=== PATIENT | male | born 1950 | race Caucasian/White ===

== ENCOUNTER 2020-08-10 06:27 | Day surgery (SDC) | payer MEDICARE ==
[2020-08-10] MEDS ORDERED: LACTATED RINGERS 1,000 ML IV ONE ×2 (06:33→08:15)
[2020-08-10] MEDS ORDERED: MIDAZOLAM 2 MG/2 ML VIAL ONE ×3 (07:39→08:01)
[2020-08-10] MEDS ORDERED: fentaNYL 250 MCG/5 ML VIAL ONE (07:39)
[2020-08-10 08:55] VITALS: BP 111/75
== END 2020-08-10 06:28 | disposition home or self-care (01) ==
LOC: SDS 06:27
PROVIDERS: ATTEND Surgery
DX: Z12.11 Encounter for screening for malignant neoplasm of colon (principal); K57.30 Diverticulosis of large intestine without perforation or abscess without bleeding; K64.8 Other hemorrhoids; Z87.891 Personal history of nicotine dependence; K40.90 Unilateral inguinal hernia, without obstruction or gangrene, not specified as recurrent
CPT/HCPCS: G0121; J3010; J7120

== ENCOUNTER 2023-01-12 08:25 | Day surgery (SDC) | payer MEDICARE ==
[~2023-01-12 08:25] MED LIST: BUPIVACAINE 0.5%-EPI 1:200000 PF 30 ML VIAL ONE
[2023-01-12] MEDS ORDERED: ceFAZolin 2 GM VIAL ONE (08:31)
[2023-01-12] MEDS ORDERED: LACTATED RINGERS 1,000 ML IV ONE ×2 (08:51→12:57)
[2023-01-12] MEDS ORDERED: fentaNYL 100 MCG/2 ML VIAL ONE (10:24)
[2023-01-12] MEDS ORDERED: PROPOFOL 200 MG/20 ML VIAL IVP ONE ×2 (10:24→12:11)
[2023-01-12] MEDS ORDERED: LIDOCAINE-PF 2% 10 ML AMP SUBQ ONE (10:24)
[2023-01-12] MEDS ORDERED: MIDAZOLAM 2 MG/2 ML VIAL ONE (10:24)
[2023-01-12] MEDS ORDERED: ONDANSETRON 4 MG/2 ML VIAL ONE (10:26)
[2023-01-12] MEDS ORDERED: ePHEDrine 50 MG/ML VIAL IVP ONE (10:44)
--- NOTE | 2023-01-12 10:46 | ANESTHESIA ---
Pre-Anesthesia VS, & Labs - Diagnosis B inguinal hernia - Procedure B inguinal hernia repair Vital Signs: Temp Pulse Resp BP Pulse Ox O2 Flow Rate 36.1 C L 65 16 149/95 H 98 01/12/23 08:44 01/12/23 08:44 01/12/23 08:44 01/12/23 08:44 01/12/23 08:44 Height: 6 ft Weight (kg): 84.6 kg Body Mass Index: 25.2 BMI Classification: Overweight - NPO >8 hours Home Medications and Allergies Home Medications: Ambulatory Orders Acetaminophen [Tylenol] 650 mg PO Q6H PRN 01/09/23 Albuterol Sulfate [Proventil Hfa] 200 puffs IH PRN PRN 01/09/23 Fluticasone [Flonase] 1 sprays BRADY BID PRN 01/09/23 Ibuprofen 400 mg PO PRN PRN 08/10/20 Acetaminophen [Tylenol] 650 mg PO Q6H PRN 01/09/23 Albuterol Sulfate [Proventil Hfa] 200 puffs IH PRN PRN 01/09/23 Fluticasone [Flonase] 1 sprays BRADY BID PRN 01/09/23 Allergies/Adverse Reactions: Allergies Allergy/AdvReac Type Severity Reaction Status Date / Time No Known Drug Allergies Allergy Verified 01/09/23 11:24 Anes History & Medical History - Anesthetic History Anesthesia Complications: reports: No previous complications Family history of Anesthesia Complications: Denies Family history of Malignant Hyperthermia: Denies - Medical History Cardiovascular: reports: None Pulmonary: reports: Asthma, COPD, Other Gastrointestinal: reports: None, Other Urinary: reports: None Musculoskeletal: reports: None Endocrine/Autoimmune: reports: None Skin: reports: Psoriasis Psychosocial: reports: Alcohol (Daily ETOH) - Surgical History General: reports: Colonoscopy Eyes Ears Nose Throat (EENT): reports: Cataracts, Detached retina repair, Tonsil/Adenoidectomy Exam General: Alert, Oriented x3, Cooperative Dental: WNL Mouth Openin Fingerbreadth Neck Mobility: Normal Mallampati classification: II Respiratory: Lungs clear Cardiovascular: Regular rate Abdomen: Normal bowel sounds Plan Anesthesia Type: General Consent for Procedure(s) Verified and Reviewed: Yes Code Status: Attempt Resuscitation ASA classification: 3-Severe systemic disease Is this case an emergency?: No
[2023-01-12] MEDS ORDERED: ATROPINE ABBOJECT 1 MG/10 ML SYRINGE IVP PRN (10:47)
[2023-01-12] MEDS ORDERED: fentaNYL 100 MCG/2 ML VIAL IVP PRN (10:47)
[2023-01-12] MEDS ORDERED: HYDROmorphone 0.5 MG/0.5 ML SYRINGE IVP PRN (10:47)
[2023-01-12] MEDS ORDERED: MORPHINE 2 MG/ML CARPUJECT IVP PRN (10:47)
[2023-01-12] MEDS ORDERED: METOCLOPRAMIDE 10 MG/2 ML VIAL IVP PRN (10:47)
[2023-01-12] MEDS ORDERED: ePHEDrine 50 MG/ML VIAL IVP PRN (10:47)
[2023-01-12] MEDS ORDERED: NALOXONE 0.4 MG/ML VIAL IVP PRN (10:47)
[2023-01-12] MEDS ORDERED: ONDANSETRON 4 MG/2 ML VIAL IVP PRN (10:47)
[2023-01-12] MEDS ORDERED: BUPIVACAINE 0.5%-EPI 1:200000 PF 30 ML VIAL SUBQ ONE (10:55)
[2023-01-12] MEDS ORDERED: LACTATED RINGERS 1,000 ML IV SCH (11:00)
[2023-01-12] MEDS ORDERED: HYDROcod/ACETAM 5/325 MG TABLET PO PRN (13:19)
[2023-01-12] MEDS ORDERED: HYDROcod/ACETAM 10 MG/325 MG TABLET PO PRN (13:19)
--- NOTE | 2023-01-12 13:27 | OPERATIVE REPORT ---
Operative Report - General Planned Procedure: BILATERAL inguinal herniorrhaphy Pre-Op Diagnosis: BILATERAL inguinal hernia Procedure Performed: LEFT indirect sliding inguinal herniorrhaphy and excision cord lipoma, LEFT hydrocelectomy RIGHT indirect sliding inguinal herniorrhaphy and excision cord lipoma Post Op Diagnosis: LEFT sliding indirect inguinal hernia, LEFT cord lipoma, LEFT hydrocele - Procedure Note Primary Surgeon: Franklin Max MD Anesthesia Provider: Diana Castillo CRNA Anesthesia Technique: General LMA, Local (30 mL of half percent Marcaine with epinephrine) IV Fluids (mL): 600 Estimated Blood Loss (mL): 5 Drain/Tube Type: Other (None.) Indications: BILATERAL symptomatic inguinal hernias Complications: None. - Other Other Information/Narrative: After verbal and written informed consent was obtained detailing the operation, the alternatives the operation including no operation, risks of infection, bleeding requiring transfusion with its risks, nerve injury, and and after I met with the patient confirming the surgery and the site of surgery, the patient was brought to the operative suite and placed supine on the operating table. Great care was taken to avoid pressure points to prevent pressure necrosis or nerve injury. Monitoring devices were applied along with TEDs and pneumatic compression stockings (to prevent DVT). The patient received p reoperative antibiotics for surgical prophylaxis. Dinaa Castillo CRNA sedated and anesthetized the patient for the entire procedure. The patient was prepped and draped in the usual sterile manner. With the patient draped my initials were clearly visible. A "time in" then confirmed that the patient was identified with 3 identifiers (name, date, and medical record number), the history and physical was updated and in the chart, the signed consent confirming the procedure was in the chart, the patient was in the correct position, the aforementioned prophylactic measures were in place or given, we had the correct personnel and equipment to complete the procedure and that anesthesia and the surgical team were given an opportunity to express any concerns. With the agreement of everyone in the room we proceeded with the operation. The LEFT side was addressed first. A standard inguinal incision was made and dissection was carried down to the external oblique aponeurosis using a co mbination of Metzenbaum scissors and Bovie electrocautery. The external oblique aponeurosis was cleared of overlying adherent tissue, and the external ring was delineated. The external oblique was incised with a scalpel and this incision was carried down to the external ring using Metzenbaum scissors. Care was taken not to injure the ilioinguinal nerve. Having expose the inguinal canal, the he rnia sac was quite large and filled with abdominal contents and as such the hernia itself had to be reduced in order to be able to visualize the inguinal canal properly. Using traction countertraction the left testicle was brought up into the operative field, and upon reduction of some of the hernia sac contents back into the abdomen it was clear that the patient had a rather large left hydrocele. The hydrocele sac was opened and part of the sac itself was resected. It was then sutured back onto itself using 3-0 Vicryl sutures to ensure that the hydrocele did not return. The cord structures were from the canal as well as large sac using blunt dissection, sharp dissection, and Bovie electrocautery and a Jimmy drain was placed around the cord structures at the level of the pubic tubercle. This Jimmy drain was then used to retract the cord structures as needed. Adherent cremasteric muscle was dissected free from the cord using Bovie electrocautery. The sac was dissected back to the widely dilated internal ring. The sac itself was quite wide and was a sliding hernia. As such I decided to reduce the hernia sac and its contents back into the abdomen without resecting any portion of the sac. Dissection along the cord structures found a lipoma that was dissected back to the internal ring, ligated with 3-0 Vicryl, transected, and the stump cauterized and allowed to retract back into the abdomen. A extra-large PerFix plug (ref#[id number], lot#[id number], use by 2024-03-23) was then inserted into the internal ring and secured to the edge of the internal ring using a 2-0 PDS. The PerFix onlay patch was then secured to the pubic tubercle with a 2 0-PDS U stitch. The mesh was then secured to the conjoined tendon superiorly using interrupted 2-0 PDS sutures and secured to the shelving edge of Poupart's ligament inferiorly using interrupted 2-0 PDS sutures. The mesh was secured around the cord structures loosely with a 2-0 PDS suture thus creating a new int ernal ring. The [place] drain was then removed. Meticulous hemostasis was obtained using Bovie electrocautery. The wound was then injected superficially and deep using 15 mL of quarter percent Marcaine. The incision the external oblique was approximated using 3-0 Vicryl in a running fashion thus reforming the external ring. The skin incision was approximated with 4-0 Monocryl in a subcuticular fashion. The right side was then addressed and was fixed in a similar fashion other than the fact that there was no hydrocele on the right-hand side. The right hand sides hernia sac was smaller but still was a sliding hernia. The right-hand side also had a lipoma associated with it. The right-hand side mesh was a large PerFix plug (ref#[id number], lot#[id number], use by 2026-12-22). The skin was cleaned of its prep and Dermabond was applied. At this point a timeout was performed that confirmed that all counts were correct x2, the procedure that was performed, the blood loss, the IV fluids administered, the patient's condition, and any concerns of the operating team had. Having tolerated the procedure well, the patient was taken recovery room in good and stable condition. Gentle downward traction ensured the testes were well seated in the scrotum. The plan is for outpatient discharge when the patient is adequately recovered. CPT indirect sliding inguinal hernia repair 76114 BILATERAL CPT excision cord lipoma 15170 BILATERAL CPT hydrocelectomy [id number] LEFT This document was created in part using voice recognition technology. Because of the inherent limitations of the system, occasional same sounding word substitutions and grammatical errors do occur and persist despite proofreading. Please read this document for content.
[2023-01-12 13:53] VITALS: BP 158/75
--- NOTE | 2023-01-12 15:59 | ANESTHESIA POST OP EVALUATION ---
Anesthesia Post Eval - Post Anesthesia Eval Vitals: Last Vital Signs Temp 36.2 C L 01/12/23 13:51 Pulse 67 01/12/23 13:51 Resp 16 01/12/23 13:51 BP 158/75 H 01/12/23 13:51 Pulse Ox 100 01/12/23 13:51 O2 Flow Rate CV Function Including HR & BP: Stable Pain Control: Satisfactory Nausea & Vomiting: Negative Mental Status: Baseline Respiratory Status: Airway Patent Hydration Status: Satisfactory Anesthesia Complications: None
== END 2023-01-12 08:26 | disposition home or self-care (01) ==
LOC: SDS 08:25
PROVIDERS: ATTEND Surgery
DX: K40.20 Bilateral inguinal hernia, without obstruction or gangrene, not specified as recurrent (principal); D17.6 Benign lipomatous neoplasm of spermatic cord; N43.3 Hydrocele, unspecified; J44.9 Chronic obstructive pulmonary disease, unspecified; Z87.891 Personal history of nicotine dependence
CPT/HCPCS: 49525; 55520; A9270; C1781; J7120